=== PATIENT | female | born 1965 | race Caucasian/White ===

== ENCOUNTER → 2018-12-05 | Day surgery (SDC) | payer BC ==
[~2018-12-05] MED LIST: ATORVASTATIN CA20 MG PO; CYMBALTA30 MG PO; FENTANYL CITRATE/PF 100MCG/2 ML INJ ONE; METOCLOPRAMIDE HCL 10 MG/2ML VIAL ONE; MIDAZOLAM HCL 2 MG/2 ML VIAL ONE; PROPOFOL IV EMULSION 10 MG/ML 50 ML VIAL ONE
--- OUTSIDE RECORDS SUMMARY | 2018-12-05 11:04 | XMS REPORT | Continuity of Care Document ---
Author Author Smith cevallos Organization Interface Address Unknown Phone Unavailable Problems Problem Status Onset Date Classification Date Reported Comments Source EYE INJURY Active 11/01/2017 [facility] Medications Medication Details Route Status Patient Instructions Ordering Provider Order Date Source Allergies, Adverse Reactions, Alerts Substance Category Reaction Severity Reaction type Status Date Reported Comments Source Immunizations Immunization Date Given Site Status Last Updated Comments Source Results Order Name Results Value Reference Range Date Interpretation Comments Source Orbit wo contrast CT Orbit wo contrast CT EXAM: Orbit wo contrast CT PROVIDED CLINICAL HISTORY: Right orbital pain, bruising, and swelling after trauma. Patient reports walking into a clothing fixture at work yesterday. TECHNIQUE: Contiguous axial images without intravenous contrast. Coronal and sagittal reformats. EXPOSURE: Total exam DLP is 492.36 mGy-cm. COMPARISON: No relevant prior exams available at the time of interpretation. FINDINGS: BONES: No acute fracture of the imaged facial bones, calvarium, or skull base. No aggressive bone lesions. No temporomandibular joint dislocation. SOFT TISSUES: Superficial soft tissue injury, including a moderate-sized RIGHT periorbital contusion/hematoma. No appreciable radiopaque foreign body. RIGHT ORBIT: No intraorbital air or signs of contusion. No significant extra- conal or retrobulbar hemorrhage. No significant orbital proptosis. No lens dislocation, vitreous hemorrhage, or other acute globe injury. No unusual intra- orbital radiopaque foreign body within exam limits. No significant extraocular muscle contusion or signs of entrapment. LEFT ORBIT: No acute injury. SINUSES: No significant paranasal sinus fluid. Paranasal sinus mucosal thickening from mild-moderate chronic sinuitis. MASTOID / AUDITORY: No significant fluid in the imaged mastoid air cells. IMPRESSION: Right periorbital soft tissue injury. No acute fracture. No acute intraorbital injury. SL: MARIZOL 11/01/2017 - - Read by: Miah Bello MD Dictated Date/time: 11/01/17 09:53 Electronically Signed by: Miah Bello MD 11/01/17 10:10 FINAL REPORT [facility] Digital Mammo Screening Mary Ann MA Digital Mammo Screening Mary Ann MA - DIGITAL MAMMO SCREENING MARY ANN MA BILATERAL DIGITAL SCREENING MAMMOGRAM WITH CAD: 06/05/2013 CLINICAL: Routine. Current study was evaluated with a Computer Aided Detection (CAD) system. Comparison is made to exams dated: 04/19/2010 mammogram, 05/27/2011 mammogram, 05/30/2012 mammogram, 06/13/2012 mammogram and 06/13/2012 ultrasound - [facility]. There are scattered fibroglandular elements in both breasts that could obscure a lesion on mammography. There are benign intramammary nodes in the left breast. Bilateral breast implants are stable and intact. No significant masses, calcifications, or other findings are seen in either breast. There has been no significant interval change. IMPRESSION: BENIGN There is no mammographic evidence of malignancy. A screening mammogram in one year is recommended. Papito richardson/penrad:06/05/2013 11:22:03 [employer]: Yessenia Junior [facility] letter sent: Normal exam Mammogram BI-RADS: 2 Benign 06/05/2013 - - Read by: Papito Zepeda Dictated Date/time: 06/05/13 11:22 Electronically Signed by: Papito Zepeda MD 06/05/13 11:22 FINAL REPORT [facility] [place] Vital Signs Vital Sign Value Date Comments Source Heart Rate 85 11/01/2017 [facility] Systolic (mm Hg) 145 11/01/2017 [facility] Diastolic (mm Hg) 80 11/01/2017 [facility] Respitory Rate 18 11/01/2017 [facility] Weight 68.182 11/01/2017 [facility] Temperature Oral (F) 97.3 F 11/01/2017 [facility] Respitory Rate 18 11/01/2017 [facility] Heart Rate 91 11/01/2017 [facility] Systolic (mm Hg) 144 11/01/2017 [facility] Diastolic (mm Hg) 96 11/01/2017 [facility] Encounters Location Location Details Encounter Type Encounter Number Reason For Visit Attending Provider ADM Date DC Date Status Source [facility] Emergency [id number] Stacia Turpin 11/01/2017 11/01/2017 [facility] Procedures Procedure Code Date Perfomer Comments Source
--- OUTSIDE RECORDS SUMMARY | 2018-12-05 11:04 | XMS REPORT | Summary of Care ---
Author Author [facility] Organization [facility] Address Unknown Phone Unavailable Encounter HQ Jonathan(MAL) [id number] Date(s): 11/01/17 - 11/01/17 [facility] [address] [place] [address]- S [phone] Discharge Disposition: Home or Self Care Attending Physician: Stacia Turpin MD Vital Signs Most recent to 1 2 oldest [Reference Range]: Temperature Oral 97.3 DegF [96.4-99.1 DegF] (11/01/17 9:20 AM) Blood Pressure 145/80 mmHg 144/96 mmHg [90-140/60-90 mmHg] *HI* *HI* (11/01/17 1:08 PM) (11/01/17 9:20 AM) Respiratory Rate 18 BRMIN 18 BRMIN [14-20 BRMIN] (11/01/17 1:08 PM) (11/01/17 9:20 AM) Peripheral Pulse 85 bpm 91 bpm Rate [60-100 bpm] (11/01/17 1:08 PM) (11/01/17 9:20 AM) Weight 68.182 kg (11/01/17 9:20 AM) Problem List No data available for this section Allergies, Adverse Reactions, Alerts Substance Reaction Severity Status NKDA Active Medications No data available for this section Results No data available for this section Immunizations No data available for this section Procedures No data available for this section Social History Social History Type Response Smoking Status Never smoker; Exposure to Tobacco Smoke None; Cigarette Smoking Last 365 Days No; Reg Smoking Cessation Counseling No Assessment and Plan No data available for this section
[2018-12-05 14:50] VITALS: BP 110/64
--- NOTE | 2018-12-05 15:27 | Operative Report ---
DATE OF PROCEDURE: December 05, 2018 REFERRING PHYSICIAN: Dr. Rome. PROCEDURE PERFORMED: Esophagogastroduodenoscopy with biopsies and esophageal dilatation. INDICATIONS FOR EGD: Dysphagia to solids. MEDICATION: Patient was done under MAC. Please see anesthesiologist's note. PROCEDURE: With the patient in the left lateral decubitus position, the flexible fiberoptic Olympus gastroscope was introduced into the esophagus under direct visualization without any difficulty. There was some patchy erythema noted in the distal esophagus. There was a mild stricture noted at the GE junction, and an approximately 4 mm nodule was noted at the GE junction and that was biopsied. The scope was then advanced with ease into the stomach, traversing a small hiatal hernia. Mucosa overlying the antrum and the body revealed some patchy intense erythema and low-grade to moderate edema, and biopsies were obtained and sent to stain for H. pylori. An approximately 4 mm ulcer with somewhat heaped-up margins was noted in the antrum, and that was biopsied. Pylorus was of normal contour and shape, was intubated with ease, and the scope was advanced all the way to the 2nd portion of the duodenum. The scope was then withdrawn slowly. Mucosa overlying the proximal 2nd portion and the duodenal bulb appeared to be within normal limits. The scope was then withdrawn back into the stomach and retroflexed, and mucosa overlying the fundus appeared to be within normal limits. The previously described hiatal hernia was also noted in the retroflexed position. The scope was then straightened out. It was subsequently withdrawn. The previously described esophageal stricture was then dilated to size 52-Ivorian Najera. Patient tolerated the procedure well. IMPRESSION: 1. Distal esophagitis, mild. 2. Esophageal stricture at gastroesophageal junction dilated to size 52-Ivorian Najera. 3. Approximately 4 mm nodule, gastroesophageal junction, biopsied. 4. Hiatal hernia. 5. Gastric ulcer, approximately 4 mm in size, antrum, biopsied. 6. Gastritis biopsied. Biopsies sent to stain for H. pylori. PLAN: Follow up histology. Initiate Protonix 40 mg 1 p.o. q.a.m. a.c. Job#: [id number] EV cc:MIKO ROME MD
== END | disposition home or self-care (01) ==
LOC: ENDO 10:58
PROVIDERS: ATTEND Internal Medicine Gastroenterology
DX: K22.2 Esophageal obstruction (principal); K29.50 Unspecified chronic gastritis without bleeding; K21.0 Gastro-esophageal reflux disease with esophagitis; K22.70 Barrett's esophagus without dysplasia; K25.9 Gastric ulcer, unspecified as acute or chronic, without hemorrhage or perforation; K44.9 Diaphragmatic hernia without obstruction or gangrene; K59.00 Constipation, unspecified; E78.00 Pure hypercholesterolemia, unspecified; F32.9 Major depressive disorder, single episode, unspecified; Z88.6 Allergy status to analgesic agent; Z01.810 Encounter for preprocedural cardiovascular examination; Z68.27 Body mass index [BMI] 27.0-27.9, adult; Z86.010 Personal history of colon polyps
CPT/HCPCS: 43239; 43450; 93005; J2250; J2765